=== PATIENT | female | born 1995 | race African-American/Black ===

== ENCOUNTER 2016-12-23 13:35 | Emergency (ER) | payer MEDICARE ==
[~2016-12-23] VITALS: Ht 162.6 cm; Wt 54.9 kg
[2016-12-23 13:40] VITALS: BP 123/74; PULSE 80; RESP 20; TEMP 98.7; O2SAT 99
--- NOTE | 2016-12-23 13:45 | NUR ---
Pt placed to ER bed 05, to [facility], report given to FELISAH Tatum.
--- NOTE | 2016-12-23 13:54 | NUR ---
JOSSUE Darden at bedside examining patient.
--- NOTE | 2016-12-23 13:55 | NUR ---
Patient ambulated to bedside accompanied by her boyfriend at bedside. Patient complains of having a blood tinged vomit x 1 epidose, cold sweats, Diarrhea and low energy. Patient also complains of low energy and fever. Pain of 6/10. No other complaints/injuries per patient or as noted. Will continue to monitor.
[2016-12-23] MEDS ORDERED: ONDANSETRON HCL 4 MG/2 ML VIAL IVP ONE (14:00)
[2016-12-23] MEDS ORDERED: KETOROLAC TROMETHAMINE 30 MG VIAL IVP ONE (14:00)
[2016-12-23] MEDS ORDERED: NACL 0.9% 1,000 ML IV ONE (14:00)
--- NOTE | 2016-12-23 14:20 | NUR ---
Influenza swab obtained from Nasal. Specimen sent to lab.
--- NOTE | 2016-12-23 14:22 | NUR ---
# 20 gauge angiocath placed to Right Antecubital. Use of asceptic technique. Opsite placed over site. Blood return noted. Blood for lab drawn from site. Flushed with 10 cc of normal saline. No evidence of infiltration noted. Patient tolerated well.
[2016-12-23 14:54] LABS: BASOPHILS # (AUTO) 0.1 K/uL (0.0-0.2); BASOPHILS % (AUTO) 1.3 % (0.0-2.0); EOSINOPHILS # (AUTO) 0.2 K/uL (0.0-0.4); EOSINOPHILS % (AUTO) 2.1 % (0.0-4.0); HEMATOCRIT 43.1 % (36-48); HEMOGLOBIN 13.8 g/dL (12.0-16.0); LYMPHOCYTES # (AUTO) 2.9 K/uL (1.0-5.5); LYMPHOCYTES % (AUTO) 30.7 % (20.5-51.5); MEAN CORPUSCULAR HEMOGLOBIN 26 pg (27-31); MEAN CORPUSCULAR HGB CONC 32 % (32-36); MEAN CORPUSCULAR VOLUME 81 fL (79.0-98.0); MONOCYTES # (AUTO) 0.8 K/uL (0.0-1.0); MONOCYTES % (AUTO) 8.3 % (1.7-9.3); NEUTROPHILS # (AUTO) 5.3 K/uL (1.8-7.7); NEUTROPHILS % (AUTO) 57.6 % (40.0-70.0); PLATELET COUNT (AUTO) 255 K/uL (130-430); RED BLOOD CELL COUNT(AUTO) 5.32 MIL/uL (4.2-6.2); RED CELL DISTRIBUTION WIDTH 14.8 % (9.0-15.0); WHITE BLOOD COUNT (AUTO) 9.3 K/uL (4.8-10.8)
[2016-12-23 15:07] LABS: BILIRUBIN,URINE NEGATIVE (NEGATIVE); BLOOD, URINE NEGATIVE (NEGATIVE); COLOR,URINE YELLOW (YELLOW); GLUCOSE,URINE NEGATIVE (NEGATIVE); KETONES,URINE NEGATIVE (NEGATIVE); LEUKOCYTE ESTERASE ,URINE 1+ (NEGATIVE); NITRITE, URINE NEGATIVE (NEGATIVE); PROTEIN URINE NEGATIVE (NEGATIVE); UROBILINOGEN,URINE 0.2 (0.2-1.0)
--- NOTE | 2016-12-23 15:11 | NUR ---
Patient resting quietly. No acute distress noted. Vital signs within normal range.
[2016-12-23 15:17] LABS: CLARITY/URINE HAZY (CLEAR)
[2016-12-23 15:18] LABS: BACTERIA,URINE FEW /HPF (None Seen); RBC,URINE NONE SEEN /HPF (0-3)
[2016-12-23 15:19] LABS: MUCUS,URINE None Seen /LPF (None Seen)
[2016-12-23 15:33] LABS: CALCIUM 9.3 mg/dL (8.4-11.0); CREATININE 0.94 mg/dL (0.55-1.30); POTASSIUM 3.4 mmol/L (3.5-5.1)
[2016-12-23 15:38] LABS: ALBUMIN 4.3 g/dL (3.4-4.8); TOTAL BILIRUBIN 0.5 mg/dL (0.0-1.0)
[2016-12-23 16:14] VITALS: BP 109/63; PULSE 71; RESP 16; TEMP 98.7; O2SAT 100
--- NOTE | 2016-12-23 16:14 | NUR ---
Patient given written and verbal discharge instructions and verbalizes understanding. ER MD discussed with patient the results and treatment provided. Patient in stable condition. ID arm band removed. IV catheter removed intact and dressing applied, no active bleeding. Rx of Zofram, Motrin and Macrobid given. Patient educated on pain management and to follow up with PMD in 2-3 days. Pain Scale 0/10 Opportunity for questions provided and answered.
== END 2016-12-23 16:14 | disposition home or self-care (01) ==
LOC: SED 13:35
DX: N39.0 Urinary tract infection, site not specified (principal); I10 Essential (primary) hypertension; Z90.49 Acquired absence of other specified parts of digestive tract
CPT/HCPCS: 36415; 80053; 81000; 81025; 83690; 85025; 86710; 96361; 96374; 96375; 99284; J1885; J2405; J7030

== ENCOUNTER 2021-06-09 22:30 | Observation (INO) | payer OTHER | END 2021-06-09 23:50 | disposition home or self-care (01) | LOC: SPU 22:30 | PROVIDERS: ADMIT Obstetrics & Gynecology; ATTEND Obstetrics & Gynecology | DX: O26.892 Other specified pregnancy related conditions, second trimester (principal); R10.32 Left lower quadrant pain; Z3A.20 20 weeks gestation of pregnancy | CPT/HCPCS: G0378 ==